=== PATIENT | male | born 1965 | race Two or more races ===

== ENCOUNTER 2025-08-24 05:24 | Emergency (ER) | payer MEDICAID, OTHER ==
[~2025-08-24] VITALS: Ht 182.9 cm; Wt 75.0 kg
[2025-08-24 05:25] VITALS: BP 129/92; PULSE 78; RESP 20; TEMP 97.7; O2SAT 96
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
[2025-08-24] MEDS: KETOROLAC TROMETH 30 MG/ML 1ML VIAL IM ONE (08:00)
== END 2025-08-24 08:04 | disposition home or self-care (01) ==
LOC: ER 05:24
DX: M79.18 Myalgia, other site (principal); R10.9 Unspecified abdominal pain; M54.9 Dorsalgia, unspecified; Z88.8 Allergy status to other drugs, medicaments and biological substances